=== PATIENT | female | born 2000 | race Caucasian/White ===

== ENCOUNTER → 2019-03-31 | Outpatient (CLI) | payer OTHER ==
[~2019-03-31] MED LIST: HYDR-87 PO; NITR-65 PO; ONDA8TAB13 PO; TAMS0.4C98 PO
--- NOTE | 2019-03-31 12:35 | Diagnostic Imaging Report ---
DATE: 03/31/2019 11:55 AM REASON FOR EXAM: ABD PAIN. Evaluate for appendicitis. COMPARISON: None TECHNIQUE: Focused abdominal sonogram in the right lower quadrant. FINDINGS: The appendix is not visualized on this abdominal ultrasound due to overlying bowel gas. However, no secondary signs of acute appendicitis are visualized. No free fluid or loculated fluid collections. IMPRESSION: 1. Nonvisualization of the appendix without secondary signs of acute appendicitis. If continued clinical concern, recommend CT abdomen and pelvis to further characterize. Dictated by: Dictated on workstation # [id number]
== END ==
LOC: RAD 11:17
PROVIDERS: ATTEND Nurse Practitioner Family
DX: R10.31 Right lower quadrant pain (principal)
CPT/HCPCS: 76705

== ENCOUNTER 2019-04-01 04:40 | Emergency (ER) | payer OTHER ==
[~2019-04-01] VITALS: Ht 154.9 cm; Wt 68.9 kg
[2019-04-01] MEDS ORDERED: LACTATED RINGERS 1,000 ML IV ONE (04:54)
[2019-04-01 05:17] LABS: BASOPHILS % (AUTO) 0 % (0-10); EOSINOPHILS # (AUTO) 0.1 10^3/uL (0.0-0.3); EOSINOPHILS % (AUTO) 2 % (0-10); HEMATOCRIT 40 % (35-52); HEMOGLOBIN 13.1 G/DL (11.5-16.0); LYMPHOCYTES # (AUTO) 3.5 X 10^3 (1.0-4.0); LYMPHOCYTES % (AUTO) 39 % (12-44); MEAN CORPUSCULAR HEMOGLOBIN 28 PG (25-34); MEAN CORPUSCULAR HGB CONC 33 G/DL (32-36); MEAN CORPUSCULAR VOLUME 86 FL (80-99); MEAN PLATELET VOLUME 10.6 FL (7.4-10.4); MONOCYTES # (AUTO) 0.9 X 10^3 (0.0-1.0); MONOCYTES % (AUTO) 10 % (0-12); NEUTROPHILS # (AUTO) 4.4 X 10^3 (1.8-7.8); NEUTROPHILS % (AUTO) 50 % (42-75); PLATELET COUNT 297 10^3/uL (130-400); RED CELL DISTRIBUTION WIDTH 12.7 % (10.0-14.5); WHITE BLOOD COUNT 8.9 10^3/uL (4.3-11.0)
[2019-04-01] MEDS ORDERED: ONDANSETRON 4 MG/2 ML (SDV) Z0FRAN IVP ONE (05:30)
[2019-04-01] MEDS ORDERED: KETOROLAC 30 MG/ML VIAL IVP ONE (05:30)
[2019-04-01 05:38] LABS: ALANINE AMINOTRANSFERASE 25 U/L (0-55); ALBUMIN 4.4 GM/DL (3.2-4.5); ALKALINE PHOSPHATASE 72 U/L (40-136); AMYLASE 66 U/L (25-125); BILIRUBIN,TOTAL 0.3 MG/DL (0.1-1.0); BUN/CREATININE RATIO 17; CALCIUM 10.3 MG/DL (8.5-10.1); CARBON DIOXIDE 23 MMOL/L (21-32); CHLORIDE 105 MMOL/L (98-107); CREATININE SERUM 0.77 MG/DL (0.60-1.30); GFR ESTIMATED > 60; GLUCOSE 103 MG/DL (70-105); LIPASE 23 U/L (8-78); POTASSIUM 3.6 MMOL/L (3.6-5.0); SODIUM 142 MMOL/L (135-145); TOTAL PROTEIN 7.6 GM/DL (6.4-8.2)
--- NOTE | 2019-04-01 06:03 | ED Abdominal Pain ---
General Chief Complaint: Back Problems Stated Complaint: ABD PAIN Nursing Triage Note: C/O RIGHT FLANK PAIN Sepsis Screen: No Definite Risk Source of Information: Patient History of Present Illness Date Seen by Provider: Apr 01, 2019 Time Seen by Provider: 04:49 Initial Comments PT ARRIVES VIA POV FROM HOME STATES SHE WOKE UP AT 0500 YESTERDAY WITH PAIN IN RLQ, RADIATING TO RIGHT GROIN AREA PAIN COMES AND GOES, NOTHING WORSENS OR IMPROVES PAIN--BUT HAS NOT TAKEN ANYTHING FOR PAIN STATES SHE WOKE UP THIS AM AT 0400 AND PAIN WAS MUCH WORSE AND IS NOW MOSTLY IN RIGHT FLANK PAIN AND IS CONSTANT NOW HAVING NAUSEA NO FEVER NO URINARY SYMPTOMS LMP--SOMETIME IN FEBRUARY. NO CONTROL. PT IS . PT WENT TO [facility] YESTERDAY AND HAD OUTPATIENT ULTRASOUND OF APPENDIX ONLY--WAS NON-DIAGNOSTIC. ( PT DID GIVE A DIFFERENT NAME AT THAT TIME--SHAUNNA OSORIO--UNABLE TO FIND PT IN COMPUTER UNDER THAT NAME OR SHAUNNA LITTLEJOHN, BUT [employer] WAS ABLE TO RETRIEVE THE ULTRASOUND REPORT ) PCP: DR. ZAMUDIO'S SHEARING MACHINE TENDER, JARRETT AKHTAR Allergies and Home Medications Allergies Coded Allergies: Penicillins (Verified Allergy, Unknown, 04/01/19) Patient Home Medication List Home Medication List Reviewed: Yes Review of Systems Review of Systems Constitutional: no symptoms reported Respiratory: No Symptoms Reported Cardiovascular: No Symptoms Reported Gastrointestinal: See HPI, Abdominal Pain; Denies Constipated, Denies Diarrhea; Nausea; Denies Vomiting Genitourinary: Flank Pain Musculoskeletal: see HPI, back pain Skin: no symptoms reported Psychiatric/Neurological: No Symptoms Reported Endocrine: No Symptoms Reported Hematologic/Lymphatic: No Symptoms Reported Past Zqmemne-Jnwcpi-Kborsj Hx Patient Social History Alcohol Use: Denies Use Recreational Drug Use: No Smoking Status: Never a Smoker 2nd Hand Smoke Exposure: No Recent Foreign Travel: No Contact w/Someone Who Travel: No Recent Infectious Disease Expo: No Recent Hopitalizations: No Physical Abuse: No Sexual Abuse: No Mistreated: No Fear: No Seasonal Allergies Seasonal Allergies: No Past Medical History Surgeries: No Respiratory: No Cardiac: No Neurological: No : No Last Menstrual Period: Feb 28, 2019 Hx : 0 Reproductive Disorders: No (TAKES SPIRONOLACTONE FOR UNKNOWN REASON--PRESCRIBED BY SHEARING MACHINE TENDER JARRETT ZAMUDIO) Genitourinary: No Gastrointestinal: No Musculoskeletal: No Endocrine: No HEENT: No Cancer: No Psychosocial: No Integumentary: No Blood Disorders: No Physical Exam Vital Signs Vital Signs - First Documented 04/01/19 04:51 Temp 97.9 Pulse 81 Resp 18 B/P (MAP) 132/85 (101) Pulse Ox 97 Capillary Refill : Less Than 3 Seconds Height/Weight/BMI Height: 5'1.00" Weight: 152lbs. oz. 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, no motor/sensory deficits, alert, normal mood/affect, oriented x 3 Skin: normal color, warm/dry; No rash Progress/Results/Core Measures Results/Orders Lab Results Laboratory Tests Test 04/01/19 04:58 04/01/19 05:05 Range/Units White Blood Count 8.9 4.3-11.0 10^3/uL Red Blood Count 4.66 4.35-5.85 10^6/uL Hemoglobin 13.1 11.5-16.0 G/DL Hematocrit 40 35-52 % Mean Corpuscular Volume 86 80-99 FL Mean Corpuscular Hemoglobin 28 25-34 PG Mean Corpuscular Hemoglobin Concent 33 32-36 G/DL Red Cell Distribution Width 12.7 10.0-14.5 % Platelet Count 297 130-400 10^3/uL Mean Platelet Volume 10.6 H 7.4-10.4 FL Neutrophils (%) (Auto) 50 42-75 % Lymphocytes (%) (Auto) 39 12-44 % Monocytes (%) (Auto) 10 0-12 % Eosinophils (%) (Auto) 2 0-10 % Basophils (%) (Auto) 0 0-10 % Neutrophils # (Auto) 4.4 1.8-7.8 X 10^3 Lymphocytes # (Auto) 3.5 1.0-4.0 X 10^3 Monocytes # (Auto) 0.9 0.0-1.0 X 10^3 Eosinophils # (Auto) 0.1 0.0-0.3 10^3/uL Basophils # (Auto) 0.0 0.0-0.1 10^3/uL Sodium Level 142 135-145 MMOL/L Potassium Level 3.6 3.6-5.0 MMOL/L Chloride Level 105 98-107 MMOL/L Carbon Dioxide Level 23 21-32 MMOL/L Anion Gap 14 5-14 MMOL/L Blood Urea Nitrogen 13 7-18 MG/DL Creatinine 0.77 0.60-1.30 MG/DL Estimat Glomerular Filtration Rate > 60 BUN/Creatinine Ratio 17 Glucose Level 103 70-105 MG/DL Calcium Level 10.3 H 8.5-10.1 MG/DL Corrected Calcium 10.0 8.5-10.1 MG/DL Total Bilirubin 0.3 0.1-1.0 MG/DL Aspartate Amino Transf (AST/SGOT) 24 5-34 U/L Alanine Aminotransferase (ALT/SGPT) 25 0-55 U/L Alkaline Phosphatase 72 40-136 U/L Total Protein 7.6 6.4-8.2 GM/DL Albumin 4.4 3.2-4.5 GM/DL Amylase Level 66 25-125 U/L Lipase 23 8-78 U/L Serum Test, Qualitative NEGATIVE NEGATIVE My Orders Orders - NOEMI XIE DO Urine Bedside (04/01/19 04:49) Drug Screen Stat (Urine) (04/01/19 04:49) Ua Culture If Indicated (04/01/19 04:49) Ed Iv/Invasive Line Start (04/01/19 04:54) Ct Abd/Pelvis Wo(Kidney Stone) (04/01/19 04:54) Acute Abd Series (04/01/19 04:54) Amylase (04/01/19 04:54) Cbc With Automated Diff (04/01/19 04:54) Comprehensive Metabolic Panel (04/01/19 04:54) Lipase (04/01/19 04:54) Ed Iv/Invasive Line Start (04/01/19 04:54) Lactated Ringers (Lr 1000 Ml Iv Solution (04/01/19 04:54) Hcg,Qualitative Serum (04/01/19 05:13) Ketorolac Injection (Toradol Injection) (04/01/19 05:30) Ondansetron Injection (Zofran Injectio (04/01/19 05:30) Medications Given in ED Current Medications Medications Dose Ordered Sig/Danielito Route Start Time Stop Time Status Last Admin Dose Admin Ketorolac Tromethamine 30 mg ONCE ONCE IVP 04/01/19 05:30 04/01/19 05:32 DC 04/01/19 05:40 30 MG Lactated Ringer's 1,000 ml @ 0 mls/hr Q0M ONCE IV 04/01/19 04:54 04/01/19 04:56 DC 04/01/19 05:22 1,000 MLS/HR Ondansetron HCl 8 mg ONCE ONCE IVP 04/01/19 05:30 04/01/19 05:32 DC 04/01/19 05:40 8 MG Vital Signs/I&O 04/01/19 04:51 Temp 97.9 Pulse 81 Resp 18 B/P (MAP) 132/85 (101) Pulse Ox 97 Blood Pressure Mean: 101 Progress Progress Note : Progress Note BEGAN VOMITING SHORTLY AFTER ARRIVAL. GAVE ZOFRAN, AND THEN TORADOL FOR PAIN, AFTER RETURN OF NEGATIVE TEST. NAUSEA/VOMITING RESOLVED WITH ZOFRAN MODERATE RELIEF OF PAIN WITH TORADOL GIVEN FENTANYL WITH FURTHER IMPROVEMENT IN PAIN Diagnostic Imaging Comments ABDOMEN XRAYS--NO ACUTE PROCESS, [place] RADIOLOGIST [place] 0610 CT ABDOMEN / PELVIS--3 MM RIGHT DISTAL URETERAL STONE WITH MILD RIGHT SIDED HYDRONEPHROSIS AND MILD PERINEPHRIC AND PERIURETERAL STRANDING. --PER [facility] VIA FAX AT 0625 Reviewed: Reviewed by Me Departure Impression Primary Impression: Right ureteral calculus Disposition: HOME, SELF-CARE Condition: Improved Departure-Patient Inst. Referrals: JELLY ZAMUDIO DO (PCP) Primary Care Physician JARRELL ZAMUDIO, MICHELE (Family) Primary Care Physician SHANTA RIEC MD Patient Instructions: How to Strain Your Urine, Kidney Stones (DC) Add. Discharge Instructions: LOTS OF CLEAR LIQUIDS-DRINK ENOUGH SO YOU ARE URINATING EVERY 2-3 HOURS WHILE AWAKE STRAIN ALL URINE--RETURN ANY STONES TO YOUR DR'S OFFICE FOLLOW UP WITH DR. RICE OR YOUR DR ON THURSDAY FOR FURTHER CARE RETURN TO ER IF WORSE All discharge instructions reviewed with patient and/or family. Voiced understanding. Scripts Tamsulosin HCl (Flomax) 0.4 Mg Cap 0.4 MG PO DAILY, #10 CAP Prov: NOEMI XIE DO 04/01/19 Ondansetron (Ondansetron Odt) 8 Mg Tab.rapdis 8 MG PO Q6H for Nausea/Vomiting, #10 TAB Prov: NOEMI XIE DO 04/01/19 Hydrocodone/Ibuprofen (Hydrocodone-Ibuprofen 7.5-200) 1 Each Tablet 1 EACH PO Q4H PRN for PAIN-MODERATE for 3 Days, #20 TAB Prov: NOEMI XIE DO 04/01/19 Nitrofurantoin Monohyd/M-Cryst (Macrobid 100 mg Capsule) 100 Mg Capsule 100 MG PO BID, #20 CAP Prov: NOEMI XIE DO 04/01/19 NOEMI XIE DO Apr 01, 2019 06:03
--- NOTE | 2019-04-01 06:06 | Diagnostic Imaging Report ---
INDICATION: Abdominal pain. COMPARISON: None FINDINGS: Supine and upright views of the abdomen show a nondistended bowel gas pattern. Moderate colonic air and stool is noted. No abnormal air fluid levels or free intraperitoneal air is seen. No abnormal extraosseous calcifications are seen. Osseous structures show moderate levoscoliotic deformity of the lumbar spine with mild compensatory dextroscoliosis of the thoracic spine. No organomegaly is identified. Accompanying upright chest shows normal heart size and pulmonary vascularity. The lungs are well aerated and clear. The mediastinum is normal in appearance. IMPRESSION: 1. No bowel obstruction or free air. 2. Normal chest. No pneumonia or pulmonary edema. 3. S shape scoliotic deformity of the thoracolumbar spine. Dictated by: Dictated on workstation # [id number]
--- NOTE | 2019-04-01 06:24 | Diagnostic Imaging Report ---
PROCEDURE: CT urinary tract, rule out kidney stone. TECHNIQUE: Multiple contiguous axial images were obtained through the abdomen and pelvis without the use of intravenous contrast. Auto Exposure Controls were utilized during the CT exam to meet ALARA standards for radiation dose reduction. INDICATION: Abdominal pain. FINDINGS: No comparison available. Limited views of the lower thorax are normal. Liver is normal. No focal liver lesions are seen. Gallbladder is normal. No biliary ductal dilation. Pancreas, spleen and adrenal glands are normal. There is an obstructing 3 mm distal right ureteral stone with mild right-sided hydroureter. No left-sided stones are seen. Urinary bladder is normal. Uterus and adnexa are normal. There are no dilated loops of large or small bowel. Appendix is normal. No abdominal or pelvic lymphadenopathy. No free fluid or air. There are no suspicious osseous lesions. There are bilateral L5 pars defects. IMPRESSION: 1. Obstructing 3 mm distal right ureteral stone with mild right-sided hydroureter. Dictated by: Dictated on workstation # [id number]
[2019-04-01 06:28] LABS: BILIRUBIN,URINE NEGATIVE (NEGATIVE); CLARITY,URINE VERY CLOUDY; COLOR,URINE YELLOW; GLUCOSE, URINE (UA) NEGATIVE (NEGATIVE); KETONES,URINE NEGATIVE (NEGATIVE); LEUKOCYTE ESTERASE ,URINE 1+ (NEGATIVE); NITRITE,URINE NEGATIVE (NEGATIVE); PH,URINE 5 (5-9); PROTEIN,URINE 2+ (NEGATIVE); UROBILINOGEN,URINE NORMAL (NORMAL)
[2019-04-01] MEDS ORDERED: fentaNYL INJECTION 100 MCG/2 ML AMP ONE (06:43)
[2019-04-01 06:44] LABS: RBC,URINE TNTC /HPF; WBC,URINE RARE /HPF
[2019-04-01 06:45] LABS: BACTERIA,URINE TRACE /HPF; SQUAMOUS EPITHELIAL CELL,UR 0-2 /HPF
[2019-04-01] MEDS ORDERED: TAMS0.4C98 PO (06:45)
[2019-04-01] MEDS ORDERED: fentaNYL INJECTION 100 MCG/2 ML AMP IVP ONE (06:45)
[2019-04-01] MEDS ORDERED: ONDA8TAB13 PO (06:45)
[2019-04-01] MEDS ORDERED: NITR-65 PO (06:45)
[2019-04-01] MEDS ORDERED: TAMSULOSIN 0.4 MG (FLOMAX) CAP PO SCH (06:45)
[2019-04-01] MEDS ORDERED: HYDR-87 PO (06:45)
[2019-04-01 06:51] LABS: AMPHETAMINE SCREEN, URINE NEGATIVE (NEGATIVE); BARBITURATE SCREEN URINE NEGATIVE (NEGATIVE); BENZODIAZEPINES SCREEN URINE NEGATIVE (NEGATIVE); CANNABINOID SCREEN, URINE NEGATIVE (NEGATIVE); COCAINE SCREEN URINE NEGATIVE (NEGATIVE); METHADONE STAT NEGATIVE (NEGATIVE); METHAMPHETAMINE SCREEN URINE S NEGATIVE (NEGATIVE); OPIATE SCREEN URINE NEGATIVE (NEGATIVE); OXYCODONE STAT NEGATIVE (NEGATIVE); PROPOXYPHENE STAT NEGATIVE (NEGATIVE); TRICYCLIC ANTIDEPRESSANTS SCRE NEGATIVE (NEGATIVE)
[2019-04-01 08:33] VITALS: BP 109/82
== END 2019-04-01 08:33 | disposition home or self-care (01) ==
LOC: EDUNIT# 04:40 → MERGE 04:44 → ER 04:44
DX: N13.2 Hydronephrosis with renal and ureteral calculous obstruction (principal); Z88.0 Allergy status to penicillin
CPT/HCPCS: 36415; 74022; 74176; 80053; 80306; 81000; 82150; 83690; 84703; 85025; 96361; 96374; 96375

== ENCOUNTER → 2019-04-05 | Outpatient (CLI) | payer OTHER ==
[~2019-04-05] MED LIST changes: +SPIR50TA4 PO
--- NOTE | 2019-04-05 15:29 | Diagnostic Imaging Report ---
INDICATION: Right ureteral stone. TIME OF EXAM: 1:45 PM COMPARISON: No prior studies are available for comparison. FINDINGS: Moderate stool in the colon is seen. No definite calcific densities are identified overlying the renal shadows. There is a right pelvic calcification somewhat medially located measuring approximately 2 mm in size. This may represent a ureteral calculus. No other significant abnormality is seen. IMPRESSION: Questionable distal right ureteral calculus. The study is otherwise unremarkable. Dictated by: Dictated on workstation # [id number]
== END ==
LOC: RAD 13:27
PROVIDERS: ATTEND Urology
DX: N20.1 Calculus of ureter (principal)
CPT/HCPCS: 74018

== ENCOUNTER 2019-04-06 08:16 | Day surgery (SDC) | payer OTHER ==
[~2019-04-06] VITALS: Ht 154.9 cm; Wt 68.3 kg
[2019-04-06] VITALS (10 sets, daily range): BP systolic 97–118; BP diastolic 55–76
[~2019-04-06 08:16] MED LIST changes: -SPIR50TA4 PO
--- OUTSIDE RECORDS SUMMARY | 2019-04-06 08:22 | XMS REPORT ---
Author Author LOUIS MCCOY [facility] Address [address] [place] [address] Care Team Providers Care Production Supply Equipment Tender Name Role Phone LOUIS MCCOY Unavailable PROBLEMS Type Condition ICD9-CM Code [id number] Code Onset Dates Condition Status SNOMED Code Problem Counseling on other sexually transmitted diseases V65.45 Active 442616990 Problem Irregular menstrual cycle 626.4 Active 41203728 Problem Scoliosis (and kyphoscoliosis), idiopathic 737.30 Active 20788075 Problem General counseling for initiation of other contraceptive measures V25.02 Active 047757471879778 Problem Unspecified contraceptive management V25.9 Active 082565015 Problem DTAP TEST V06.1 Active Problem Other general medical examination for administrative purposes V70.3 Active 99129239 ALLERGIES No Known Allergies ENCOUNTERS Encounter Location Date Diagnosis [facility] [address], [place] [address] Nov, Bilateral impacted cerumen H61.23 [facility] [id number] [place] [address] Dec, [facility] [id number] [place] [address] Dec, [facility] [id number] [place] [address] Jun, [facility] [id number] [place] [address] Jun, [facility] [id number] [place] [address] Oct, [facility] [id number] [place] [address] May, [facility] [address] [address] May, [facility] [address] [facility] [id number] [address] Oct, IMMUNIZATIONS No Known Immunizations SOCIAL HISTORY Never Assessed REASON FOR VISIT decreased hearing left ear about 1 week JStrasserRN PLAN OF CARE Activity Details Follow Up prn Reason: VITAL SIGNS Height 62.5 in 2017-11-15 Weight 143.6 lbs 2017-11-15 Temperature 98.5 degrees Fahrenheit 2017-11-15 Heart Rate 80 bpm 2017-11-15 Respiratory Rate 20 2017-11-15 BMI 25.84 kg/m2 2017-11-15 Blood pressure systolic 100 mmHg 2017-11-15 Blood pressure diastolic 62 mmHg 2017-11-15 MEDICATIONS No Known Medications RESULTS No Results PROCEDURES Procedure Date Ordered Result Body Site EAR LAVAGE 2017-11-15 N/A INSTRUCTIONS MEDICATIONS ADMINISTERED No Known Medications
--- OUTSIDE RECORDS SUMMARY | 2019-04-06 08:22 | XMS REPORT | Continuity of Care Document ---
Author Organization Unknown Address Unknown Phone Unavailable Allergies Active Description Code Type Severity Reaction Onset Reported/Identified Relationship to Patient Clinical Status Yes Penicillins Drug Allergy 10/19/2008 Yes Penicillins Drug Allergy N/A N/A 10/19/2008 Medications There is no data. Problems Date Dx Coded Attending Type Code Diagnosis Diagnosed By 04/13/2008 V06.5 Dt, Tetanus-diphtheria [td] 04/13/2008 KELLEY RATLIFF DO V06.5 Dt, Tetanus-diphtheria [td] 04/13/2008 TIMA HAMMER MD V06.5 Dt, Tetanus-diphtheria [td] 10/19/2008 V20.2 Preventive Medicine New Patient Evaluation Childhood 5-11 10/19/2008 KELLEY RATLIFF DO V20.2 Preventive Medicine New Patient Evaluation Childhood 5-11 10/19/2008 TIMA HAMMER MD V20.2 Preventive Medicine New Patient Evaluation Childhood 5-11 04/23/2010 V01.84 Meningococcal Vaccine 04/23/2010 V05.3 Hepatitis Viral/all 04/23/2010 KELLEY RATLIFF DO V01.84 Meningococcal Vaccine 04/23/2010 KELLEY RATILFF DO V05.3 Hepatitis Viral/all 04/23/2010 TIMA HAMMER MD V01.84 Meningococcal Vaccine 04/23/2010 TIMA HAMMER MD V05.3 Hepatitis Viral/all 05/26/2012 626.4 IRREGULAR MENSTRUAL CYCLE 05/26/2012 V25.02 CONTRACEPTION - ANY METHOD 05/26/2012 V65.45 Counseling - Std 05/26/2012 KELLEY RATLIFF DO 626.4 IRREGULAR MENSTRUAL CYCLE 05/26/2012 KELLEY RATLIFF DO V25.02 CONTRACEPTION - ANY METHOD 05/26/2012 KELLEY RATLIFF DO V65.45 Counseling - Std 05/26/2012 TIMA HAMMER MD 626.4 IRREGULAR MENSTRUAL CYCLE 05/26/2012 TIMA HAMMER MD V25.02 CONTRACEPTION - ANY METHOD 05/26/2012 TIMA HAMMER MD V65.45 Counseling - Std 06/01/2012 737.30 SCOLIOSIS (AND KYPHOSCOLIOSIS) IDIOPATHIC 06/01/2012 V70.3 OTHER GENERAL MEDICAL EXAMINATION FOR ADMINISTRATIVE PURPOSES 06/01/2012 KELLEY RATLIFF DO 737.30 SCOLIOSIS (AND KYPHOSCOLIOSIS) IDIOPATHIC 06/01/2012 KELLEY RATLIFF DO V70.3 OTHER GENERAL MEDICAL EXAMINATION FOR ADMINISTRATIVE PURPOSES 06/01/2012 TIMA HAMMER MD 737.30 SCOLIOSIS (AND KYPHOSCOLIOSIS) IDIOPATHIC 06/01/2012 TIMA HAMMER MD V70.3 OTHER GENERAL MEDICAL EXAMINATION FOR ADMINISTRATIVE PURPOSES 10/14/2012 V06.1 TDAP DX 10/14/2012 KELLEY RATLIFF DO V06.1 TDAP DX 10/14/2012 TIMA HAMMER MD V06.1 TDAP DX 01/04/2014 TIMA HAMMER MD V25.9 CONTRACEPTION MANAGEMENT 04/04/2019 CANDIS JEFFERSON INGREDIENT MIXER-C Ot R10.31 RIGHT LOWER QUADRANT PAIN Procedures Code [place] [address] THERAPUTIC INJ SQ/IM 07/01/2013 J1050 DEPO PROVERA 07/01/2013 84033 URINE TEST (IN-HOUSE) 07/01/2013 80400 TEST, URINE (IN-HOUSE) 01/04/2014 J1050 DEPO PROVERA 01/04/2014 69437 THERAPUTIC INJ SQ/IM 01/04/2014 Results There is no data. Encounters ACCT No. Visit Date/Time Discharge Status Pt. Type Provider Facility Loc./Unit Complaint [id number] 01/04/2014 17:58:00 01/04/2014 23:59:59 CLS Outpatient TIMA HAMMER MD [id number] 07/01/2013 14:44:00 07/01/2013 23:59:59 CLS Outpatient KELLEY RATLIFF DO [id number] 10/14/2012 13:44:00 10/14/2012 23:59:59 CLS Outpatient [id number] 11/15/2017 15:15:00 11/15/2017 23:59:59 CLS [facility] [id number] 03/31/2019 11:17:00 03/31/2019 23:59:59 CLS Outpatient CANDIS JEFFERSON INGREDIENT MIXER-C [facility] RAD ABD PAIN [id number] 03/30/2013 09:59:00 03/30/2013 23:59:59 CLS Outpatient
--- OUTSIDE RECORDS SUMMARY | 2019-04-06 08:22 | XMS REPORT ---
Author Author NGHIA RAMIREZ Organization [facility] Address [address] [place] [address] Care Team Providers Care Videographer Name Role Phone NGHIA RAMIREZ Unavailable PROBLEMS Type Condition ICD9-CM Code [id number] Code Onset Dates Condition Status SNOMED Code Problem Counseling on other sexually transmitted diseases V65.45 Active 632462133 Problem Scoliosis (and kyphoscoliosis), idiopathic 737.30 Active 44424076 Problem Irregular menstrual cycle 626.4 Active 52963648 Problem Unspecified contraceptive management V25.9 Active 022485366 Problem General counseling for initiation of other contraceptive measures V25.02 Active [id number] Problem Other general medical examination for administrative purposes V70.3 Active 21570035 Problem DTAP TEST V06.1 Active ALLERGIES No Information ENCOUNTERS Encounter Location Date Diagnosis [facility] [address] [address] Nov, Bilateral impacted cerumen H61.23 [facility] [address] [place] [address] Dec, [facility] [address] [address] Dec, [facility] [id number] [place] [address] Jun, [facility] [address] [place] [address] Jun, [facility] [id number] [place] [address] Oct, [facility] [address] [address] May, [facility] [id number] [address] May, [facility] [address] [facility] [id number] [place] [address] Oct, IMMUNIZATIONS No Known Immunizations SOCIAL HISTORY Never Assessed REASON FOR VISIT PLAN OF CARE VITAL SIGNS Height 61.2 in 2012-06-01 Weight 115.12 lbs 2012-06-01 Temperature 98.4 degrees Fahrenheit 2012-06-01 Heart Rate 87 bpm 2012-06-01 Respiratory Rate 16 2012-06-01 Blood pressure systolic 104 mmHg 2012-06-01 Blood pressure diastolic 57 mmHg 2012-06-01 MEDICATIONS No Known Medications RESULTS No Results PROCEDURES Procedure Date Ordered Result Body Site AUDIOMETRY-SCREEN Jun 01, 2012 INSTRUCTIONS MEDICATIONS ADMINISTERED No Known Medications
[2019-04-06] MEDS: LACTATED RINGERS 1,000 ML IV PRN ×2 (08:52→12:39)
[2019-04-06] MEDS ORDERED: SPIR50TA4 PO (09:10)
[2019-04-06] MEDS ORDERED: cefTRIAXone 1,000 MG IV (ROCEPHIN) VIAL ONE (09:10)
[2019-04-06] MEDS ORDERED: cefTRIAXone FOR IV USE 1,000 MG in WATER (STERILE) FOR INJECTION 10 ML IV ONE (09:15)
--- NOTE | 2019-04-06 09:21 | NUR ---
PATIENT REPORTS NAUSEA WHEN TAKING PCN.
[2019-04-06] MEDS ORDERED: CATHETER FLUSH 10 ML SYR IV PRN (09:30)
--- NOTE | 2019-04-06 10:57 | Progress Note-Pre Operative ---
Pre-Operative Progress Note H&P Reviewed The H&P was reviewed, patient examined and no changes noted. Date Seen by Provider: Apr 06, 2019 Time Seen by Provider: 10:57 Date H&P Reviewed: Apr 06, 2019 Time H&P Reviewed: 10:57 Pre-Operative Diagnosis: RT DISTAL URETERAL STONE SHANTA RICE MD Apr 06, 2019 10:57
--- NOTE | 2019-04-06 10:59 | Progress Note-Post Operative ---
Post-Operative Progess Note Surgeon (s)/Dental Assistant Instructor (s) Surgeon SHANTA RICE MD Dental Assistant Instructor: NONE Pre-Operative Diagnosis RT DISTAL URETERAL STONE Post-Operative Diagnosis SAME Procedure & Operative Findings Date of Procedure 04/06/19 Procedure Performed/Findings RT URETEROSCOPY, BASKET AND RETROGRADE UROGRAM Anesthesia Type GENERAL Estimated Blood Loss Estimated blood loss (mL): NONE Specimens/Packing Specimens Removed NONE Packing: NONE SHANTA RICE MD Apr 06, 2019 10:59
--- NOTE | 2019-04-06 11:00 | Discharge Inst-Urology ---
Discharge Inst-Urology Reconcile Patient Problems Problems Reviewed?: Yes Discharge Medications New, Converted, or Re-newed RX: RX on Chart Patient Instructions/Follow Up Plan Please make appointment to been seen in office in 4 weeks. Increase oral fluids for 48 hours and then as needed. Diet and Activity as tolerated. If questions or concerns contact your physician Or seek help at emergency department. SHANTA RICE MD Apr 06, 2019 11:00
[2019-04-06] MEDS ORDERED: MIDAZOLAM 2 MG/2 ML (VERSED) VIAL ONE (12:05)
[2019-04-06] MEDS ORDERED: fentaNYL INJECTION 100 MCG/2 ML AMP ONE (12:05)
[2019-04-06] MEDS ORDERED: ONDANSETRON 4 MG/2 ML (SDV) Z0FRAN ONE (12:20)
[2019-04-06] MEDS ORDERED: ROCURONIUM 10 MG/ML 5 ML SYRINGE IV ONE (12:20)
[2019-04-06] MEDS ORDERED: proPOfol 200 MG/20 ML (DIPRIVAN) VIAL IV ONE (12:20)
[2019-04-06] MEDS ORDERED: SEVOFLURANE (ULTANE) 15 ML INHAL SOLN ONE ×3 (12:20→12:41)
[2019-04-06] MEDS ORDERED: LIDOCAINE PF 2% 5 ML (XYLOCAINE) VIAL ONE (12:20)
[2019-04-06] MEDS ORDERED: DEXAMETHASONE 10 MG/ML (DECADRON) 1 ML VIAL ONE (12:20)
[2019-04-06] MEDS ORDERED: ONDANSETRON 4 MG/2 ML (SDV) Z0FRAN IVP PRN (12:30)
[2019-04-06] MEDS ORDERED: morphine INJ 10 MG/ML 1ML (SYR OR VIAL) IVP ONE (12:30)
[2019-04-06] MEDS ORDERED: GLYCOPYRROLATE 0.2 MG/ML (ROBINUL) 2 ML VIAL ONE (12:41)
[2019-04-06] MEDS ORDERED: NEOSTIGMINE 3 MG/3 ML VIAL ONE (12:41)
--- NOTE | 2019-04-06 14:09 | Anesthesia-General Post-Op ---
General Patient Condition Mental Status/LOC: Same as Preop Cardiovascular: Satisfactory Nausea/Vomiting: Absent Respiratory: Satisfactory Pain: Controlled Complications: Absent Post Op Complications Complications None Follow Up Care/Instructions Patient Instructions None needed. Anesthesia/Patient Condition Patient Condition Patient was seen after the procedure and she was doing well, no complaints, stable vital signs, no apparent adverse anesthesia problems. JESSI VAZQUEZ DO Apr 06, 2019 14:09
--- NOTE | 2019-04-06 14:34 | NUR ---
THIS RN PHONED DR. RICE TO SEE IF PATIENT NEEDS ANY PRESCRIPTIONS. DR. RICE INFORMED PATIENT HAS ALL MEDICATIONS AT HOME THAT SHE NEEDS. WILL CONTINUE TO DISCHARGE PATIENT.
--- NOTE | 2019-04-06 17:31 | OPERATIVE REPORT ---
DATE OF SERVICE: 04/06/2019 PREOPERATIVE DIAGNOSIS: Right distal ureteral stone. POSTOPERATIVE DIAGNOSIS: Right distal ureteral stone. OPERATION PERFORMED: Right ureteroscopy, passage of the basket and retrograde urogram. SURGEON: Michael Rice MD ANESTHESIA: General. COMPLICATIONS: None. DESCRIPTION OF PROCEDURE: Under satisfactory general anesthesia, the patient in lithotomy position, genitalia were prepped and draped in the usual sterile fashion. Cystoscope was introduced under vision. The bladder was normal with bilateral clear effluxes. Using the foroblique lens, I dilated the right ureteral orifice intramural portion to accommodate a 6.9 Lao semirigid ureteroscope, went up to the level where the stone was presumably and beyond it. I could not visualize any stone. I went ahead and backed up and passed the basket, Piper basket under vision and fluoroscopy three or four times, met no resistance and no stones. I injected contrast through the ureteroscope. The contrast flew very easily to the kidney. There was no filling defect and complete emptying of the system on withdrawing the ureteroscope. I discontinued further attempt. Introduced the cystoscope again to empty the bladder. The patient tolerated the procedure and anesthesia well and was sent to recovery room in stable condition. PLAN: I told to the and her [id number] that she either passed the stone or the stone moved up. We have to see how she does over the next few days. Her ureter now was dilated and if there is still stone there it is easier to pass. We will see how she does in 4 weeks. She is to call or come to the emergency room with any problems. Job ID: [id number] DocumentID: [id number] Dictated Date: 04/06/2019 13:04:24 [employer] Agent Date: 04/06/2019 17:31:01 Dictated By: MICHAEL RICE MD
== END 2019-04-06 15:15 | disposition home or self-care (01) ==
LOC: SDC 08:16
PROVIDERS: ATTEND Urology
DX: N20.1 Calculus of ureter (principal); Z88.0 Allergy status to penicillin; Z79.891 Long term (current) use of opiate analgesic; Z79.899 Other long term (current) drug therapy
CPT/HCPCS: 84703; 87081

== ENCOUNTER → 2021-03-05 | Outpatient (CLI) | payer OTHER ==
[~2021-03-05] MED LIST changes: +SPIR50TA4 PO; -TAMS0.4C98 PO; +TMSL.4C PO
--- NOTE | 2021-03-05 12:43 | Diagnostic Imaging Report ---
PROCEDURE: US Non-ob pelvis comp/trans. TECHNIQUE: Multiple realtime grayscale images were obtained of the pelvis in various projections endovaginally. Transabdominal imaging was also performed. INDICATION: Oligomenorrhea. COMPARISON: CT abdomen and pelvis from 04/01/2019. FINDINGS: The uterus measures 6.6 x 3.4 x 4.5 cm. There is no myometrial mass. The endometrium measures 0.6 cm in thickness. The right ovary measures 3.75 x 2.84 x 2.93 cm giving a volume of 16.34 mL. There are numerous peripheral subcentimeter anechoic follicles throughout the right ovary. The left ovary measures 3.52 x 2.16 x 3.23 cm for a volume of 12.86 mL. There are numerous peripheral anechoic follicles all measuring less than 1 cm in size. No free pelvic fluid. IMPRESSION: 1. Sonographic features meet criteria for polycystic ovarian syndrome. Dictated by: Dictated on workstation # [id number]
== END ==
LOC: RAD 09:42
PROVIDERS: ATTEND Obstetrics & Gynecology
DX: N91.5 Oligomenorrhea, unspecified (principal)
CPT/HCPCS: 76830; 76856